=== PATIENT | female | born 1960 | race African-American/Black ===

== ENCOUNTER 2017-06-08 18:51 | Emergency (ER) | payer OTHER ==
[~2017-06-08] VITALS: Ht 157.5 cm; Wt 69.4 kg
[2017-06-08 18:53] VITALS: BP 168/94
[2017-06-08] MEDS ORDERED: PHENAZOPYRIDINE 200 MG TABLET ONE (19:09)
[2017-06-08] MEDS ORDERED: DILT120T4 PO (19:18)
[2017-06-08] MEDS ORDERED: ASPI-496 PO (19:18)
[2017-06-08] MEDS ORDERED: PHENAZOPYRIDINE 200 MG TABLET PO ONE (19:30)
[2017-06-08 19:33] LABS: PATH.CAST-FLAG NOT PRESENT; SPERM-FLAG NOT PRESENT; SRC-FLAG NOT PRESENT; XTAL-FLAG NOT PRESENT; YLC-FLAG NOT PRESENT
== END 2017-06-08 20:25 | disposition home or self-care (01) ==
LOC: ED 20:15
DX: N30.90 Cystitis, unspecified without hematuria (principal); M54.5 Low back pain
CPT/HCPCS: 81001; 87077; 87086; 87186; 99284